=== PATIENT | male | born 1975 | race Caucasian/White ===

== ENCOUNTER 2020-05-17 07:51 | Outpatient (REF) | payer BC, SELFPAY | END 2020-05-17 07:52 | disposition home or self-care (01) | LOC: HO.LAB 07:51 | PROVIDERS: Visit Provider Internal Medicine | DX: Z20.828 Contact with and (suspected) exposure to other viral communicable diseases (principal) | CPT/HCPCS: 36415; C9803; U0003 ==

== ENCOUNTER 2023-09-05 15:06 | Outpatient (REF) | payer BC, SELFPAY ==
[2023-09-05 18:02] LABS: Insulin 4 uU/mL (2-29); TSH reflex Free T4 3.43 uIU/mL (0.32-4.0)
[2023-09-05 18:23] LABS: Alanine Aminotransferase 16 U/L (0-40); Albumin Level 4.5 g/dL (3.5-5.0); Alkaline Phosphatase 114 U/L (39-117); Anion Gap 16 (12-20); Aspartate Amino Transferase 14 U/L (5-37); Bilirubin Total 0.7 mg/dL (0.0-1.0); Blood Urea Nitrogen 14 mg/dL (9-16); Calcium 9.9 mg/dL (8.4-10.2); Carbon Dioxide 25 mmol/L (22-29); Chloride 95 mmol/L (96-108); Cholesterol 202 mg/dL (<200); Estimated Glomerular Filt Rate > 60; Glucose Random 523 mg/dL (60-115); HDL Cholesterol 46 mg/dL (>40); LDL Cholesterol Calculated 139 mg/dL (<100); Potassium 4.7 mmol/L (3.3-5.1); Sodium 131 mmol/L (135-145); Total Protein 7.7 g/dL (6.5-8.0); Triglycerides 86 mg/dL (<150)
[2023-09-06 13:38] LABS: C Peptide 1.27 ng/mL (0.80-3.85)
[2023-09-08 18:18] LABS: Glutamic acid decarboxylase Ab <5 IU/mL (<5)
[2023-09-10 14:53] LABS: Insulinoma associated 2 aatb <5.4 U/mL (<5.4)
[2023-09-16 04:49] LABS: Insulin Auto Antibody <0.4 U/mL (<0.4)
== END 2023-09-05 15:07 | disposition home or self-care (01) ==
LOC: HO.HHCL 15:06
PROVIDERS: Visit Provider Nurse Practitioner Primary Care
DX: E11.65 Type 2 diabetes mellitus with hyperglycemia (principal)
CPT/HCPCS: 36415; 80053; 80061; 83525; 84443; 84681; 86337; 86341

== ENCOUNTER 2024-11-19 09:41 | Outpatient (REF) | payer BC, SELFPAY ==
[2024-11-19 12:16] LABS: Alanine Aminotransferase 38 U/L (0-40); Albumin Level 4.6 g/dL (3.5-5.0); Alkaline Phosphatase 49 U/L (39-117); Anion Gap 12 (12-20); Aspartate Amino Transferase 33 U/L (5-37); Blood Urea Nitrogen 11 mg/dL (9-16); Calcium 9.2 mg/dL (8.4-10.2); Carbon Dioxide 25 mmol/L (22-29); Chloride 107 mmol/L (96-108); Cholesterol 173 mg/dL (<200); Estimated Glomerular Filt Rate > 60; HDL Cholesterol 47 mg/dL (>40); Potassium 4.1 mmol/L (3.3-5.1); Sodium 140 mmol/L (135-145); Total Protein 7.3 g/dL (6.5-8.0); Triglycerides 68 mg/dL (<150)
== END 2024-11-19 09:42 | disposition home or self-care (01) ==
LOC: HO.HHCL 09:41
PROVIDERS: PCP Nurse Practitioner Primary Care; Visit Provider Nurse Practitioner Primary Care
DX: E11.65 Type 2 diabetes mellitus with hyperglycemia (principal); Z79.4 Long term (current) use of insulin
CPT/HCPCS: 36415; 80048; 80061; 80076

== ENCOUNTER 2024-12-04 16:04 | Outpatient (REF) | payer BC, SELFPAY ==
--- OUTSIDE RECORDS SUMMARY | 2024-12-04 16:40 | XMS_ITS | Encounter Summary ---
Author Organization [employer] Address [address] [place] [address] Care Team Providers Care Offset Press Operator Name Role Phone Tosha Andrea SHAGUFTA Primary Care Provider [phone] Jaswinder Porter PharmD Unavailable [phone] Encounter Details Date Type Department Care Team ([facility] Contact Info) Description 10/07/2022 Orders Only [facility]S [address], [place] [id number] Ilda Calderon LPN Social History Tobacco Use Types Packs/Day Years Used Date Smoking Tobacco: Never Passive Smoke Exposure: Never Smokeless Tobacco: Never Alcohol Use Standard Drinks/Week Comments Never 0 (1 standard drink = 0.6 oz pur e alcohol) Sex and Gender Information Value Date Recorded Sex Assigned at Male 03/08/2022 10:16 AM EDT Legal Sex Male 10:16 AM EDT Gender Identity Choose not to disclose 10:16 AM EDT Sexual Orientation Choose not to disclose 2021 10:16 AM EDT COVID-19 Exposure Response Date Recorded In the last 10 days, have yo u been in contact with someone who was confirmed or suspected to have Coronavirus/COVID-19? No / Unsure 10/05/2022 2:42 PM EDT documented as of this encounter Plan of Treatment Upcoming Encounters Date Type Department Care Team ([facility] Contact Info) Description 01/08/2025 3:30 PM EDT Medication Management [facility] MEDICINE [address], [place] [id number] Jaswinder Porter, PharmD [address] [place] [address] documented as of this encounter Visit Diagnoses Not on filedocumented in this encounter Care Teams Offset Press Operator Relationship Specialty Start Date End Date Tosha Andrea ANP [address] [place] [address] PCP - General Family Medicine 12/14/19 Jaswinder Porter PharmD [address] [place] [id number] Pharmacist Internal Medicine 11/07/23 documented as of this encounter
--- OUTSIDE RECORDS SUMMARY | 2024-12-04 16:40 | XMS_ITS | Clinical Summary ---
Author Organization [facility] Address [address] [place] [address] Phone Care Team Providers Care Negative Turner Apprentice Name Role Phone Tosha Andrea NP Primary Care Provider [phone] Allergies No known active allergies Medications blood sugar diagnostic Strp strips 1 each by Miscellaneous route as needed. For Freestyle [place] Lite Glucometer 120 strip 12/11/19 20 Active blood-glucose meter kit Use as instructed Freestyle freedom lite Meter glucometer 1 each 12/11/19 20 Active insulin glargine (LANTUS, BASAGLAR) 100 unit/mL (3 mL) InPn injection pen Inject 20 Units under the skin nightly at bedtime. 1 pen 12/11/19 Active Additional Information Patient taking differently: 18 UnitsSubcutaneous Nightly, Reported on 06/30/2020 insulin lispro (ADMELOG, HUMALOG) 100 unit/mL injection pen Inject 4 Units under the skin 4 (four) times a day with meals and nightly. Plus sliding scale insulin. Blood glucose (mg/dL): Insulin dose Glucose 70-150: 0 unit. Glucose 151-200: 1 unit. Glucose 201-250: 2 units. Glucose 251-300: 3 units. Glucose 301-350: 4 units. Glucose 351-400: 5 units. 1 pen 12/11/19 20 Active insulin pen needles, disposable, 32 gauge x 5/32 Ndle 1 each by Miscellaneous route 5 (five) times a day. Active DEXCOM G6 TRANSMITTER Yessica 1 Device by Miscellaneous route continuous. One every 90 days 1 Device 3 09/04/19 21 Active DEXCOM G6 SENSOR Yessica 1 kit by Miscellaneous route continuous. Every 10 days 3 Device 12 09/04/19 21 Active DEXCOM G6 TRACK MAN Misc by Miscellaneous route continuous. 1 each 09/04/19 Active carbamide peroxide (DEBROX) 6.5 % otic solution 5 drops by Each Ear route 2 (two) times a day. 15 mL 12/20/19 Active Active Problems Problem Noted Date Diagnosed Date Abnormal thyroid blood test 06/30/2020 Assessment & Plan (07/01/2020 12:00 AM EST): Modestly abnormal TFTs at time of diagnosis with slightly elevated TSH and low free T4 Thyroid labs ordered for recheck today -- values are improved though free T4 remains in low normal range, antiTPO ab pending If antiTPO ab positive then may benefit from subtherapeutic dose of LT4 to support thyroid function as future reduced function would be likely Type 1 diabetes mellitus without complication Overview (06/30/2020): DIABETES HISTORY Diagnosis -- type 1 diabetes, dx Dec 2019 Treatment -- MDI since diagnosis Assessment & Plan (06/30/2020 11:56 PM EST): Fransisco will continue his current insulin doses, his blood sugar patterns are very stable in ideal range despite the fact that he is using fixed mealtime doses We discussed CGM at length today and Fransisco was provided written information on this, an order for Dexcom G6 was placed We will adjust insulin doses as needed based on CGM data Fransisco is encouraged to continue his efforts at healthy lifestyle habits Advised to contact me with any questions or concerns Fransisco will return for follow up with Gillian Coe in September and with me in 6 months Generalized weakness 12/11/2019 Assessment & Plan (12/11/2019 9:10 AM EDT): Significantly improved with resolution of his metabolic acidosis. Continue supportive care. Resolved Problems Problem Noted Date Diagnosed Date Resolved Date Diabetic ketoacidosis withou t coma associated with type 1 diabetes mellitus 12/10/2019 06/30/2020 Assessment & Plan (12/11/2019 9:11 AM EDT): Anion gap has closed. Serum bicarbonate near normal. Will repeat labs and if unchanged, plan on starting Lantus/sliding scale insulin and discontinuing insulin infusion. Case management consulted regarding acquiring diabetic supplies. Educated re: importance of blood sugar control and potential complications of diabetes. Given documented cases of new-onset diabetes resulting from COVID-19 infection, will check COVID serology. As he is otherwise asymptomatic, we will not put him on enhanced precautions while awaiting results of serology. Family History Medical History Relation Comments Diabetes Brother Relation Status Comments Brother Social History Tobacco Use Types Packs/Day Years Used Date Smoking Tobacco: Never Smokeless Tobacco: Never Alcohol Use Standard Drinks/Week Comments Yes 0 (1 standard drink = 0.6 oz pure alcohol) Inconsistent alcohol use, formerly regular drinker Education Answer Date Recorded Are you interested in more education? Not on addis e 09/03/2022 Are you concerned about learning? Not on file 09/03/2022 No 09/03/2022 No 09/03/2022 Digital Access Answer Date Recorded No 10/02/2022 No 10/02/2022 Reliable internet access at home? Not on file 10/02/2022 Device with a working camera? Not on file Intimate Partner Violence Answer Date R ecorded Are you denied basic needs s [facility] as food, clothing, or medical care? No 12/19/2022 In the past 12 months have y ou been in a relationship with a person who hurts, threatens, or tries to control you? No 12/19/2022 Are you denied basic needs s [facility] as food, clothing, or medical care? No 12/19/2022 In the past 12 months have y ou been in a relationship with a person who hurts, threatens, or tries to control you? No 12/19/2022 Sex and Gender Information Value Date Recorded Sex Assigned at Male 12/10/2019 11:19 AM EDT Legal Sex Male 10:56 AM EDT Gender Identity Male 12/10/2019 11:19 AM EDT Sexual Orientation Not on file Last Filed Vital Signs Vital Sign Reading Time Taken Comments Blood Pressure 120/76 12/19/2022 12:08 AM EDT Pulse 72 12/19/2022 12:08 AM EDT Temperature 36.1 C (97 F) 12/19/2022 12:08 AM EDT Respiratory Rate 16 12/19/2022 12:08 AM EDT Oxygen Saturation 98% 12/19/2022 12:08 AM EDT Inhaled Oxygen Concentration - - Weight 97.1 kg (214 lb) 12/19/2022 12:08 AM EDT Height 162.6 cm (5' 4 ) 12/19/2022 12:08 AM EDT Body Mass Index 36.73 12/19/2022 12:08 AM EDT Plan of Treatment Health Maintenance Due Date Last Done Comments BLOOD PRESSURE 1977 DEPRESSION SCREENING 1989 HEPATITIS C SCREENING 08/29/1995 HIV ONE-TIME SCREENING (18-6 5 YEARS) 08/29/1995 LIPID PANEL 08/29/1995 DIABETIC EYE EXAM 12/10/2019 URINE MICROALBUMIN/CREATININ E RATIO 12/10/2019 HEMOGLOBIN A1C 12/28/2020 06/30/2020, 04/07/2020 PNEUMOCOCCAL VACCINES (0-49 years) (2 of 2 - PCV) 02/12/2021 02/13/2020 COLOGUARD 2022 COLONOSCOPY 2022 COLORECTAL CANCER SCREENING 2022 FIT TEST 2022 FOBT 2022 SIGMOIDOSCOPY 2022 VIRTUAL COLONOSCOPY 2022 COVID-19 VACCINE (2 - 2023-2 5 season) 2024 09/13/2020 Adult Td,Tdap Booster 02/12/2030 02/13/2020 SMOKING STATUS SCREENING (On ce After 26 Yrs) Completed 12/19/2022 HEPATITIS A VACCINES Aged Out No long er eligible based on patient's age to complete this topic HIB VACCINES Aged Out No longer eligi ble based on patient's age to complete this topic MENINGOCOCCAL VACCINES (ACWY) Aged Out No longer eligible based on patient's age to complete this topic MENINGOCOCCAL VACCINES (B) Aged Out N o longer eligible based on patient's age to complete this topic Medical Devices Not on file Procedures Procedure Name Priority Date/Time Associated Diagnosis Comments POCT HEMOGLOBIN A1C Routine 06/30/2020 2 :59 PM EST Type 1 diabetes mellitus without complication from Last 3 Months or Most Recently Relevant to Health Maintenance Results * POCT Hemoglobin A1c (06/30/2020 2:59 PM EST) Hemoglobin A1c 5.7 4.2 - 5.8 % [facility] Other 06/30/2020 2:59 PM EST us Eden Saleem MD POINT OF CARE TEST ORDERABLES F inal Result Performing Organization Address City/State/[facility] Co de Phone Number [facility] [address] [place] [address], [facility] from Last 3 Months or Most Recently Relevant to Health Maintenance Insurance O POS HMO POS HMO POS [place] [address] [place] [address] [place] [address] [place] [address] HMO POS [facility] [place] [address] [place] [address] HMO POS Advance Directives For more information, please contact: [phone] (9AM - 5PM [facility], Tuesday-Tuesday) Documents on File Type Date Recorded Patient Business Solutions Analyst Expl anation Healthcare Proxy 12/14/2019 2:53 PM * Full Code (Confirmed) (Latest Code Status on File) Date Activated Date Inactivated Comments 12/11/2019 11:06 AM Question Answer Comments Code Status Confirmed With: Patient * Full Code (Presumed) Date Activated Date Inactivated Comments 12/10/2019 4:44 PM 12/11/2019 11:06 AM Healthcare Agents on File Name Relationship Healthcare Agent [facility] [employer] Gabrielle Teixeira Friend .Primary Health Care Agent (Proxy form on file) Care Teams Negative Turner Apprentice Relationship Specialty Start Date End Date Tosha Andrae NP [address] [place] [phone] PCP - General Family Medicine 09/11/20 Additional Source Comments The information contained in this document represents components of the legal health record. It is not the complete legal health record.[facility]
[2024-12-04 17:35] LABS: Microalbum/Creatinine Ratio Ur 3.0 ug/mg cr (<30)
== END 2024-12-04 16:05 | disposition home or self-care (01) ==
LOC: HO.HHCLNP 16:04
PROVIDERS: Visit Provider Nurse Practitioner Primary Care
DX: E11.65 Type 2 diabetes mellitus with hyperglycemia (principal); Z79.4 Long term (current) use of insulin
CPT/HCPCS: 82043; 82570